=== PATIENT | male | born 1995 | race Caucasian/White ===

== ENCOUNTER 2018-05-02 23:41 | Emergency (ER) | payer MEDICAID ==
[2018-05-03] MEDS: IBUPROFEN 600 MG TAB PO (01:22)
== END 2018-05-03 03:17 | disposition home or self-care (01) ==
LOC: FTE 23:41
DX: S93.401A Sprain of unspecified ligament of right ankle, initial encounter (principal); F17.210 Nicotine dependence, cigarettes, uncomplicated; X58.XXXA Exposure to other specified factors, initial encounter; Y92.9 Unspecified place or not applicable
CPT/HCPCS: 73610; 73610-RT; 99283-25